=== PATIENT | male | born 1975 | race Caucasian/White ===

== ENCOUNTER 2021-11-07 03:39 | Emergency (ER) | payer SELFPAY ==
[~2021-11-07] VITALS: Ht 157.5 cm; Wt 90.7 kg
[2021-11-07 03:40] VITALS: BP 128/64
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
--- NOTE | 2021-11-07 03:41 | NUR ---
SEEN AND EXAMINED BY JOLIE
[2021-11-07 03:48] VITALS: BP 128/64
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
== END 2021-11-07 03:48 ==
LOC: MED 03:39
DX: Z00.00 Encounter for general adult medical examination without abnormal findings (principal); V89.2XXA Person injured in unspecified motor-vehicle accident, traffic, initial encounter; Y93.89 Activity, other specified; Y92.410 Unspecified street and highway as the place of occurrence of the external cause; Y99.8 Other external cause status
CPT/HCPCS: 99283